=== PATIENT | female | born 1960 | race Caucasian/White ===

== ENCOUNTER 2016-08-29 10:53 | Emergency (ER) | payer BC, OTHER ==
[2016-08-29 11:08] VITALS: BP 144/78; PULSE 90; TEMP 97.6; BMI 28.3
[2016-08-29] MEDS ORDERED: IBUPROFEN 400 MG TABLET (FP) PO ONE ×2 (12:00→12:03)
--- NOTE | 2016-08-29 12:07 | PDOC ---
History of Present Illness - General Chief Complaint: Pain Stated Complaint: SOB, LT SIDE PAIN (RIBS) Time Seen by Provider: 08/29/16 11:49 History Source: Patient - History of Present Illness Timing/Duration: reports: week Associated Symptoms: reports: chest pain/soreness, cough. denies: fever/chills , shortness of breath Past History - Past Medical History Allergies/Adverse Reactions: Allergies Allergy/AdvReac Type Severity Reaction Status Date / Time No Known Allergies Allergy Verified 08/29/16 11:03 Home Medications: Ambulatory Orders Quetiapine Fumarate [Seroquel] 100 tab PO ASDIR 08/29/16 Psychiatric Problems: Yes (ANXEITY) - Psycho/Social/Smoking Cessation Hx Anxiety: No Suicidal Ideation: No Smoking History: Current every day smoker Have you smoked in the past 12 months: Yes Number of Cigarettes Smoked Daily: 10 Information on smoking cessation initiated: Yes 'Breaking Loose' booklet given: 08/29/16 Hx Alcohol Use: No Drug/Substance Use Hx: No Substance Use Type: None Review of Systems - Review of Systems Constitutional: No: Fever Respiratory: Yes: Cough. No: Shortness of Breath, Wheezing Cardiac (ROS): Yes: Chest Pain *Physical Exam - Vital Signs Last Vital Signs Temp Pulse Resp BP Pulse Ox 97.6 F 90 18 144/78 100 08/29/16 11:04 08/29/16 11:04 08/29/16 11:04 08/29/16 11:04 08/29/16 11:04 - Physical Exam General Appearance: Yes: Appropriately Dressed HEENT: positive: Normal Voice Neck: positive: Supple. negative: Lymphadenopathy (R), Lymphadenopathy (L) Respiratory/Chest: positive: Chest Tender ( to L chest in MAL), Lungs Clear, Normal Breath Sounds. negative: Respiratory Distress Cardiovascular: positive: Regular Rate, S1, S2 Integumentary: positive: Dry, Warm Neurologic: positive: Fully Oriented, Alert, Normal Mood/Affect ED Treatment Course - RADIOLOGY Radiology Studies Ordered: Category Date Time Status CHEST PA & LAT [RAD] Stat Radiology 08/29/16 12:01 Ordered - Medications Given in the ED: ED Medications Discontinued Medications Generic Name Dose Route Start Last Admin Trade Name Freq PRN Reason Stop Dose Admin Ibuprofen 800 mg 08/29/16 12:00 08/29/16 12:03 Motrin - PO 08/29/16 12:01 800 mg ONCE ONE Administration Medical Decision Making - Medical Decision Making 08/29/16 12:04 56 yo female, smoker, here with non-productive cough x 1 week and now reports severe pain to L chest when she coughs. Taking Tylenol w/ no relief. Denies sob , f/c. Pt stable but appears uncomfortable 2/2 pain, chest/lungs clear on exam. M/l pleuritic pain 2/2 cough, will r/o PNA given tobacco hx. Pain control in ED 08/29/16 13:10 CXR unremarkable. Dc w/ pain control as needed 08/29/16 13:23 *DC/Admit/Observation/Transfer Diagnosis at time of Disposition: Cough, Pleuritic chest pain - Discharge Dispostion Disposition: HOME Condition at time of disposition: Improved - Referrals Referrals: Jarret Luis MD [Primary Care Provider] - - Patient Instructions Printed Discharge Instructions: DI for Cough -- Adult Additional Instructions: Your CXR is normal today, no evidence of pneumonia. The source of your pain is most likely secondary to your cough. Take motrin 800mg as needed and follow up with your PMD
== END 2016-08-29 13:12 | disposition home or self-care (01) ==
LOC: JERFT 10:53
DX: R07.89 Other chest pain (principal); F17.210 Nicotine dependence, cigarettes, uncomplicated
CPT/HCPCS: 71020-TC; 99281-25

== ENCOUNTER → 2018-12-27 | Day surgery (SDC) | payer BC, OTHER ==
--- NOTE | 2018-12-28 15:38 | PATH ---
Surgical Pathology Report Patient Name: GABY GARCIA [facility]. Rec. #: [id number] /Age/Gender: 1960 (Age: 58) / F Account: [id number] Location: [facility] Taken: 12/27/2018 Received: 12/27/2018 Reported: 12/28/2018 Physicians: Sahil Shoemaker M.D. Specimen(s) Received A: LEFT BREAST SPECIMEN WITH CALCIFICATIONS B: LEFT BREAST SPECIMEN WITHOUT CALCIFICATIONS Clinical History Non-palpable lesion. Mammographic findings: Suspicious microcalcification Final Diagnosis A. BREAST, LEFT, WITH CALCIFICATIONS, STEREOTACTIC BIOPSY: BENIGN BREAST TISSUE SHOWING COLUMNAR CELL CHANGE AND STROMAL FIBROSIS WITH ASSOCIATED CALCIFICATIONS. B. BREAST, LEFT, WITHOUT CALCIFICATIONS, STEREOTACTIC BIOPSY: BENIGN BREAST TISSUE SHOWING COLUMNAR CELL CHANGE AND STROMAL FIBROSIS. FEW CALCIFICATIONS ARE PRESENT IN ASSOCIATION WITH BENIGN GLANDULAR PARENCHYMA. Electronically Signed Natalie Tang M.D. Gross Description A. Received in formalin, labeled "left breast with calcifications" are four cores of light loera and yellow-loera tissue, ranging from 0.7-3.8 cm in length with a diameter is 0.3 cm. Entirely submitted in one cassette. B. Received in formalin, labeled "left breast without calcifications" are two cores of light loera tissue measuring 1.0 and 1.8 cm in length with a diameter of up to 0.3 cm. Also present admixed with the tissue cores is a 1.5 x 1 x 0.2 cm aggregate of yellow-loera adipose tissue. Entirely submitted in one cassette. Time to formalin fixation: 5 minutes Total formalin fixation time: Approximately 6 hours AE/12/27/2018 ebram/12/27/2018
== END | disposition home or self-care (01) ==
LOC: FMAMMOTONE 09:56
PROVIDERS: ATTEND Family Medicine
PROC: 0HBU3ZX Excision of Left Breast, Percutaneous Approach, Diagnostic (ICD-10-PCS; principal; 2018-12-27)
DX: N60.32 Fibrosclerosis of left breast (principal); N64.89 Other specified disorders of breast; R92.1 Mammographic calcification found on diagnostic imaging of breast
CPT/HCPCS: 19081; 87899; 88305-TC; A4648